=== PATIENT | female | born 1975 | race Two or more races ===

== ENCOUNTER 2016-12-14 12:49 | Emergency (ER) | payer OTHER ==
[2016-12-14] MEDS ORDERED: MAALOX/LIDO2%VISC/SIMETHICONE 40 ML BOT ONE (13:48)
[2016-12-14 14:09] LABS: ABSOLUTE NEUTROPHIL COUNT 4.8 K/mm3 (1.8-7.7); BASO # 0.1 K/mm3 (0.0-0.2); BASO % 0.6 % (0.2-1.0); EOS # 0.4 (0.0-0.5); HEMATOCRIT 40.5 % (37.0-47.0); HEMOGLOBIN 13.6 gm/l (12.0-16.0); IMM NEUT% 0.2 % (0-1); LYMPH # 2.9 (1.0-4.8); LYMPH % 33.1 % (15-45); MEAN CELL VOLUME 99.5 fl (81.0-99.0); MEAN CORPUSCULAR HEMOGLOBIN 33.4 pg (27.0-31.0); MEAN CORPUSCULAR HGB CONC 33.6 g/dl (33.0-37.0); MEAN PLATELET VOLUME 9.8 fl (7.4-10.4); MONO # 0.6 (0.0-0.8); MONO % 6.4 % (4-12); NEUT % 54.7 % (43-75); PLATELET COUNT 238 K/mm3 (130-400); RED CELL DISTRIBUTION WIDTH 12.4 % (11.5-14.5)
[2016-12-14 14:25] LABS: TROPONIN I < 0.01 ng/ml (0.0-0.06)
--- NOTE | 2016-12-14 14:25 | RAD ---
CHEST 2 VIEWS HISTORY: Chest pain x1 year. Frontal and lateral chest radiographs dated 12/14/2016. COMPARISON: None. FINDINGS: FOCAL AIRSPACE OPACITY: No gross airspace consolidation. PLEURAL EFFUSION: None. CARDIOMEDIASTINAL SILHOUETTE: Nonenlarged. PNEUMOTHORAX: None identified. OSSEOUS STRUCTURES: No grossly destructive lesions. UPPER ABDOMEN: Status post cholecystectomy. IMPRESSION: No acute cardiopulmonary process noted.
[2016-12-14 14:29] LABS: CKMB ISOENZYME 1.1 ng/ml (0.6-6.3)
[2016-12-14 14:31] LABS: ALB/GLOB RATIO 1.4 (>1.0); ALBUMIN 3.9 gm/dL (3.5-5.7); CALCIUM 9.5 mg/dL (8.6-10.3)
== END 2016-12-14 14:49 | disposition home or self-care (01) ==
LOC: ED 12:49
DX: R07.9 Chest pain, unspecified (principal); F17.210 Nicotine dependence, cigarettes, uncomplicated
CPT/HCPCS: 85025; 82553; 80053; 84484; 71020; 99283 ×2; A9270